=== PATIENT | female | born 1990 | race Caucasian/White ===

== ENCOUNTER 2024-05-29 14:35 | Emergency (ER) | payer SELFPAY ==
[2024-05-29 14:39] VITALS: BP 98/75
--- NOTE | 2024-05-29 14:46 | ED.GENMED ---
ED Provider Triage
<BRODY Varela Last Filed: 05/29/24 14:48>
-
Patient seen by provider in Triage?: Seen in Triage
34 year old female with sudden upper abdominal/chest pain yesterday with nausea. History of GERD, on protonix, and medical marijuana. History of cholecystectomy. Had ulcer in the past. Pain does radiate to chest. Labs, EKG, orrdered.
History of Present Illness
<Pedrito Thao PA-C - Last Filed: 05/29/24 14:48>
General
Chief Complaint: Abdominal Pain
Time Seen by Provider: 05/29/24 17:15
<Jose Braxton Jr., PA-C - Last Filed: 05/29/24 18:42>
General
Source: patient
Exam Limitations: none
Nursing documentation reviewed up to this point in time: agreed with
History of Present Illness
History of Present Illness:
34-year-old female with past medical history of hypothyroidism, chronic abdominal issues, IBS presenting to the emergency department with upper abdominal discomfort lingered over the past week with worsening vomiting today total of 5 episodes noted
some red tinge with vomiting earlier in the day also noted some maroon color to her stool earlier as well. Pain mainly to the upper abdomen denies any fevers chest pain or shortness of breath.
Review of Systems
<Jose Braxton Jr., PA-C - Last Filed: 05/29/24 18:42>
Review of Systems
Allergies reviewed?: Yes
All Other Systems: ROS reviewed and negative except as documented in HPI and ROS
Phy Exam
<BRODY Oseguera Jr. Last Filed: 05/29/24 18:42>
Physical Exam
Physical Exam:
GENERAL: Alert , in no apparent distress
EYE: pupils equal and reactive
NECK: Supple, no significant adenopathy.
ENT: o/p clr, mmm.
CARDIAC: Regular rate and rhythm .
LUNGS: Clear breath sounds bilaterally, no acute respiratory distress, no wheezes/rales/rhonchi
ABDOMEN: Somewhat diffuse abdominal pain but maximal in the epigastric region.
NEUROLOGICAL: Alert and oriented, no focal neuro deficits
SKIN: Warm and dry, skin intact.
MUSCULOSKELETAL: No edema, well perfused.
PSYCH: Normal and appropriate interaction.
Course
<Pedrito Thao PA-C - Last Filed: 05/29/24 14:48>
Orders/Labs/Results
Orders:
Orders
05/29/24 14:42
Test Result ONCE
05/29/24 14:44
Electrocardiogram (*1) Urgent
Reason for Study: Abdominal Pain
EKG- Treatment ONCE
05/29/24 14:45
Complete Blood Count/With Diff Urgent
Comprehensive Metabolic Panel Urgent
HCG, Serum Qualitative Screen Urgent
Lipase Urgent
Manual Differential Urgent
05/29/24 14:47
Troponin I Urgent
05/29/24 17:54
CT Abd/Pel (IV only)-DH only Urgent
Comment:
Reason For Exam: abdominal pain
Mag Hydrox/Al Hydrox/Simeth [Maalox] 30 ml Phenobarb/Hyoscy/Atropine/Scop [] 10 ml PO NOW
05/29/24 18:22
Mag Hydrox/Al Hydrox/Simeth [Maalox] 30 ml .ROUTE .STK-MED ONE
Phenobarb/Hyoscy/Atropine/Scop [] 10 ml .ROUTE .STK-MED ONE
05/29/24 18:37
Viscous Lidocaine 2% [Xylocaine Viscous Cup] 15 ml PO ONCE ONE
Abnormal Lab Results
05/29/24
14:45
Segmented Neutrophils 40 L %
(42-75)
Glucose 105 H mg/dl
(70-99)
AST 46 H U/L
(14-36)
ALT 59 H U/L
(0-35)
Albumin 2.7 L g/dl
(3.5-5.0)
05/29/24 14:45
05/29/24 14:45
Vital Signs
Initial and Last Documented VS:
Initial Vital Signs
Temp Pulse Resp BP Pulse Ox
98.1 F 77 18 98/75 97
05/29/24 14:39 05/29/24 14:39 05/29/24 14:39 05/29/24 14:39 05/29/24 14:39
Last Documented Vital Signs
Temp Pulse Resp BP Pulse Ox
98.1 F 77 18 98/75 97
05/29/24 14:39 05/29/24 14:39 05/29/24 14:39 05/29/24 14:39 05/29/24 14:39
<Jose Braxton Jr., PA-Kerrie - Last Filed: 05/29/24 18:42>
Orders/Labs/Results
Orders:
Orders
05/29/24 14:42
Test Result ONCE
05/29/24 14:44
Electrocardiogram (*1) Urgent
Reason for Study: Abdominal Pain
EKG- Treatment ONCE
05/29/24 14:45
Complete Blood Count/With Diff Urgent
Comprehensive Metabolic Panel Urgent
HCG, Serum Qualitative Screen Urgent
Lipase Urgent
Manual Differential Urgent
05/29/24 14:47
Troponin I Urgent
05/29/24 17:54
CT Abd/Pel (IV only)-DH only Urgent
Comment:
Reason For Exam: abdominal pain
Mag Hydrox/Al Hydrox/Simeth [Maalox] 30 ml Phenobarb/Hyoscy/Atropine/Scop [] 10 ml PO NOW
05/29/24 18:22
Mag Hydrox/Al Hydrox/Simeth [Maalox] 30 ml .ROUTE .STK-MED ONE
Phenobarb/Hyoscy/Atropine/Scop [] 10 ml .ROUTE .STK-MED ONE
05/29/24 18:37
Viscous Lidocaine 2% [Xylocaine Viscous Cup] 15 ml PO ONCE ONE
Abnormal Lab Results
05/29/24
14:45
Segmented Neutrophils 40 L %
(42-75)
Glucose 105 H mg/dl
(70-99)
AST 46 H U/L
(14-36)
ALT 59 H U/L
(0-35)
Albumin 2.7 L g/dl
(3.5-5.0)
05/29/24 14:45
05/29/24 14:45
Vital Signs
Initial and Last Documented VS:
Initial Vital Signs
Temp Pulse Resp BP Pulse Ox
98.1 F 77 18 98/75 97
05/29/24 14:39 05/29/24 14:39 05/29/24 14:39 05/29/24 14:39 05/29/24 14:39
Last Documented Vital Signs
Temp Pulse Resp BP Pulse Ox
98.1 F 77 18 98/75 97
05/29/24 14:39 05/29/24 14:39 05/29/24 14:39 05/29/24 14:39 05/29/24 14:39
<Jose Braxton Jr., PA-C - Last Filed: 05/29/24 18:42>
MDM/Problems Addressed
MDM/Problems Addressed:
34-year-old female presenting to the emergency department today with concerns of abdominal discomfort nausea vomiting today. Also noticed a maroon clot in her stool earlier today as well. Here vital signs are normal patient in no obvious distress
does have reproducible abdominal tenderness plan for CT scan for further assessment. Otherwise EKG and troponin negative referred pain from the chest very unlikely. Labs showing slight elevation of liver function test but unlikely represent any
acute hepatitis at relatively low level. Patient here very well-appearing in general. Rectal examination had brown stool guaiac negative. Hemoglobin 14.4. Very unlikely to have any significant GI bleed at this time. Advised her close GI
follow-up. Initially to do a CT scan due to her concerns of diffuse abdominal pain. She claims she would not like to wait any longer and would like to follow-up with her GI doctor. Return precautions were given.
<Jose Braxton Jr., PA-C - Last Filed: 05/29/24 18:42>
*Critical Care Note
Total Time (30-74mins, 75-104mins- exclusive of procedures): Not Applicable
ED Attending Note
<Pedrito Thao PA-C - Last Filed: 05/29/24 14:48>
-
Portions of this chart may have been created with voice recognition software.� Occasional wrong word or��sound alike� substitutions may have occurred due to the inherent limitations of voice recognition software.
Discharge Plan
Departure
Patient Disposition: Home (Routine Discharge)
Date of Disposition: 05/29/24
Time of Disposition: 18:41
Patient with high blood pressure during this ER visit?: No
Condition: Good
Covid-19: Not Applicable
Discharge Problem:
Abdominal pain
Instructions: Abdominal Pain
Referrals:
NONE,* [Family Provider] -
Activity Restrictions/Additional Instructions:
You came to the emergency department today with concerns of abdominal pain. Here if vaguely elevated liver function test but otherwise no emergent findings. Please follow-up closely with your GI within 1 week. Return to the emergency department
for any worsening, new or concerning symptoms.
Interventions
Interventions:
*Risk Screen - Suicide Last Done: 05/29/24 14:39
*General Assessment Last Done: 05/29/24 14:39
*Neglect/Abuse Screening Last Done: 05/29/24 14:39
Discharge Date and Time
Print Language: LIBYAN
[2024-05-29 15:03] LABS: Hematocrit 41.4 % (37.0-47.0); Hemoglobin 14.4 g/dL (12.0-16.0); Mean Corp Hgb Conc. 34.8 g/dL (33.0-37.0); Mean Corpuscular Hgb 30.4 pg (27.0-31.0); Mean Corpuscular Volume 87.3 fL (81.0-99.0); Mean Platelet Volume 10.4 fL (7.4-10.4); Platelet Count 236 10^3/uL (130-400); Red Blood Cell Count 4.74 10^6/uL (4.20-5.40); Red Cell Dist. Width 13.4 % (11.5-14.5); White Blood Cell Count 9.7 10^3/uL (4.8-10.8)
[2024-05-29 15:28] LABS: HCG, Serum Qualitative Screen Negative
[2024-05-29 15:30] LABS: Troponin I < 0.012 ng/ml
[2024-05-29 15:37] LABS: ALT (SGPT) 59 U/L (0-35); AST (SGOT) 46 U/L (14-36); Albumin 2.7 g/dl (3.5-5.0); Alkaline Phosphatase 74 U/L (38-126); Blood Urea Nitrogen 15 mg/dl (7-17); Calcium 9.2 mg/dl (8.4-10.2); Carbon Dioxide 28 mmol/L (22-30); Chloride 105 mmol/L (98-107); Glucose 105 mg/dl (70-99); Lipase 80 U/L (23-300); Potassium 4.3 mmol/L (3.5-5.1); Sodium 137 mmol/L (135-145); Total Bilirubin 0.4 mg/dl (0.2-1.3); Total Protein 6.7 g/dl (6.3-8.2); eGFR > 60.00
[2024-05-29 15:54] LABS: Absolute Neutrophils -Man Diff 3.8 10^3/uL (1.4-6.5); Atypical Lymphocytes 8 %; Band Neutrophils 0 % (0-3); Eosinophils 2 % (0-6); Lymphocytes 48 % (20-51); Monocytes 2 % (2-9); Normal RBC Morphology Yes; Platelets Checked Yes; Segmented Neutrophils 40 % (42-75)
[2024-05-29 15:55] LABS: Total Cells Counted 100
[2024-05-29] MEDS: MAALOX 40 PO (18:24)
[2024-05-29] MEDS: MAALOX 30 PO (18:24)
[2024-05-29] MEDS: XYLOCAINE VISCOUS CUP 15 ML PO (18:52)
[2024-05-29 19:20] VITALS: BP 157/98
== END 2024-05-29 19:22 | disposition home or self-care (01) ==
LOC: EMR 14:35
PROVIDERS: Physician Assistant; EMERGENCY PHYSICIAN Student in an Organized Health Care Education/Training Program
DX: R10.9 Unspecified abdominal pain (principal); R11.2 Nausea with vomiting, unspecified; E03.9 Hypothyroidism, unspecified; K58.9 Irritable bowel syndrome, unspecified
CPT/HCPCS: 99283; 80053; 83690; 84484; 84703; 85025; 93005